=== PATIENT | male | born 1955 | race Caucasian/White ===

== ENCOUNTER 2017-09-27 11:38 | Inpatient (IN) | payer MEDICARE ==
[2017-09-27] VITALS (7 sets, daily range): BP systolic 148–187; BP diastolic 80–102; PULSE 66–78; RESP 16–20; TEMP 96.5–98.9; O2SAT 96–98
[~2017-09-27] VITALS: Ht 182.9 cm; Wt 119.3 kg
[2017-09-27] MEDS ORDERED: SPIR25TA PO (13:12)
[2017-09-27] MEDS ORDERED: ASPI1TAB57 PO (13:12)
[2017-09-27] MEDS ORDERED: LEVEMIR SQ (13:12)
[2017-09-27] MEDS ORDERED: ALLO300T2 PO (13:12)
[2017-09-27] MEDS ORDERED: GABA300C5 PO (13:12)
[2017-09-27] MEDS ORDERED: OXYC1CAP PO (13:12)
[2017-09-27] MEDS ORDERED: FLUO40CA PO (13:12)
[2017-09-27] MEDS ORDERED: RANI150T PO (13:12)
[2017-09-27] MEDS ORDERED: FENO145T2 PO (13:12)
[2017-09-27] MEDS ORDERED: ATEN100T PO (13:12)
[2017-09-27] MEDS ORDERED: LISI40TA PO (13:12)
[2017-09-27] MEDS ORDERED: SODIUM CHLOR 0.9% 1000 ML INJ 1,000 ML IV SCH (13:27)
--- NOTE | 2017-09-27 13:36 | PD ---
HPI Chief Complaint: Dizziness Time Seen by Provider: 13:23 Travel History International Travel<30 days: No Contact w/Intl Traveler<30days: No Traveled to known affect area: No History of Present Illness HPI This patient complained of having chest pain and abdominal pain. Duration one day. Severity is moderate. He had sternal pressure and pain as well as epigastric pain. 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 His gallbladder has been removed. He denies alcohol abuse. Symptoms have no alleviating factors. No exacerbating factors. 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) Social History Alcohol Use: No Tobacco Use: No Substance Use: No Allergies-Medications (Allergen,Severity, Reaction): Coded Allergies: hydrochlorothiazide (Verified Allergy, Severe, GOUT, 09/27/17) metformin (Verified Allergy, Severe, DIARRHEA, 09/27/17) metoprolol (Verified Allergy, Severe, GOUT, 09/27/17) Uncoded Allergies: PHENCYCHLODINE (Allergy, Severe, SNEEZE, 09/27/17) Reported Meds & Prescriptions Reported Meds & Active Scripts Active Reported Aspirin 81 (Aspirin) 81 Mg Tabdr 81 Mg PO DAILY Fluoxetine (Fluoxetine HCl) 40 Mg Cap 40 Cap PO DAILY Gabapentin 300 Mg Cap 300 Mg PO BID Ranitidine (Ranitidine HCl) 150 Mg Tab 150 Mg PO BID Atenolol 100 Mg Tab 100 Mg PO DAILY Spironolactone 25 Mg Tab 25 Mg PO DAILY Lisinopril 40 Mg Tab 40 Mg PO DAILY Fenofibrate 145 Mg Tab 145 Mg PO DAILY Oxycodone (Oxycodone HCl) 5 Mg Cap 5 Mg PO Q4H PRN Allopurinol 300 Mg Tab 300 Mg PO DAILY Levemir Inj (Insulin Detemir) 1,000 unit/ 10 ML Vial 27 Units SQ HS Do not mix with any other Insulin. Review of Systems General / Constitutional: No: Fever Eyes: No: Visual changes HENT: No: Headaches Cardiovascular: Positive: Chest Pain or Discomfort Respiratory: No: Shortness of Breath Gastrointestinal: Positive: Nausea, Vomiting, Abdominal Pain Genitourinary: No: Dysuria Musculoskeletal: No: Pain Skin: No Rash Neurologic: No: Weakness Psychiatric: No: Depression Endocrine: No: Polydipsia Hematologic/Lymphatic: No: Easy Bruising Physical Exam Narrative GENERAL: Well-nourished, well-developed patient in no apparent distress. SKIN: Focused skin assessment reveals no rash and nodules. Skin is Warm and dry. HEAD: Atraumatic. Normocephalic. EYES: Pupils equal and round. No scleral icterus. No injection or drainage. ENT: No nasal bleeding or discharge. Mucous membranes pink and moist. NECK: Trachea midline. No JVD. CARDIOVASCULAR: Regular rate and rhythm. No murmur appreciated. RESPIRATORY: No accessory muscle use. Clear to auscultation. Breath sounds equal bilaterally. GASTROINTESTINAL: Abdomen soft, mild epigastric tenderness without rebound or guarding, nondistended. Hepatic and splenic margins not palpable. MUSCULOSKELETAL: No obvious deformities. No clubbing. No cyanosis. No edema. NEUROLOGICAL: Awake and alert. No obvious cranial nerve deficits. Motor grossly within normal limits. Normal speech. PSYCHIATRIC: Appropriate mood and affect; insight and judgment normal. Data Data Last Documented VS Vital Signs Date Time Temp Pulse Resp B/P (MAP) Pulse Ox O2 Delivery O2 Flow Rate FiO2 09/27/17 15:00 75 16 148/89 (108) 97 Room Air 09/27/17 11:51 97.4 Orders Orders Complete Blood Count With Diff (09/27/17 13:27) Comprehensive Metabolic Panel (09/27/17 13:27) Lipase (09/27/17 13:27) Iv Access Insert/Monitor (09/27/17 13:27) Ecg Monitoring (09/27/17 13:27) Oximetry (09/27/17 13:27) NPO (09/27/17 13:27) Sodium Chlor 0.9% 1000 Ml Inj (Ns 1000 M (09/27/17 13:27) Sodium Chloride 0.9% Flush (Ns Flush) (09/27/17 13:30) Bedside Glucose RADHA.CSUGAR (09/27/17 13:27) Ckmb (Isoenzyme) Profile (09/27/17 13:27) Troponin I (09/27/17 13:27) Chest, Single Ap (09/27/17 ) Ondansetron Inj (Zofran Inj) (09/27/17 15:00) Sodium Chlor 0.9% 1000 Ml Inj (Ns 1000 M (09/27/17 15:00) Morphine Inj (Morphine Inj) (09/27/17 15:00) Insulin Human Regular Inj (Novolin R Inj (09/27/17 15:00) Resp Blood Gas Venous (09/27/17 ) Beta Hydroxybutyrate (Acetone) (09/27/17 15:00) Alcohol (Ethanol) (09/27/17 15:00) Blood Gas Venous (Vbg) (09/27/17 15:10) Electrocardiogram (09/27/17 11:51) Admit To Inpatient (09/27/17 ) Vital Signs (Adult) RADHA.Q4H (09/27/17 15:59) Activity Oob With Assistance (09/27/17 15:59) Inpatient Certification (09/27/17 ) Complete Blood Count With Diff (09/28/17 06:00) Basic Metabolic Panel (Bmp) (09/28/17 06:00) Labs Laboratory Tests Test 09/27/17 12:45 09/27/17 15:10 09/27/17 15:15 White Blood Count 12.9 TH/MM3 Red Blood Count 5.34 MIL/MM3 Hemoglobin 15.6 GM/DL Hematocrit 44.8 % Mean Corpuscular Volume 84.0 FL Mean Corpuscular Hemoglobin 29.1 PG Mean Corpuscular Hemoglobin Concent 34.7 % Red Cell Distribution Width 15.4 % Platelet Count 172 TH/MM3 Mean Platelet Volume 8.2 FL Neutrophils (%) (Auto) 88.9 % Lymphocytes (%) (Auto) 5.4 % Monocytes (%) (Auto) 5.3 % Eosinophils (%) (Auto) 0.2 % Basophils (%) (Auto) 0.2 % Neutrophils # (Auto) 11.5 TH/MM3 Lymphocytes # (Auto) 0.7 TH/MM3 Monocytes # (Auto) 0.7 TH/MM3 Eosinophils # (Auto) 0.0 TH/MM3 Basophils # (Auto) 0.0 TH/MM3 CBC Comment DIFF FINAL Differential Comment Blood Urea Nitrogen 36 MG/DL Creatinine 1.50 MG/DL Random Glucose 478 MG/DL Total Protein 7.7 GM/DL Albumin 3.5 GM/DL Calcium Level 9.3 MG/DL Alkaline Phosphatase 62 U/L Aspartate Amino Transf (AST/SGOT) 12 U/L Alanine Aminotransferase (ALT/SGPT) 19 U/L Total Bilirubin 0.6 MG/DL Sodium Level 130 MEQ/L Potassium Level 4.5 MEQ/L Chloride Level 95 MEQ/L Carbon Dioxide Level 17.8 MEQ/L Anion Gap 17 MEQ/L Estimat Glomerular Filtration Rate 47 ML/MIN Total Creatine Kinase 33 U/L Troponin I LESS THAN 0.02 NG/ML Lipase 3922 U/L Blood Gas Puncture Site L ARM Blood Gas Patient Temperature 98.6 Venous Blood pH 7.38 Venous Blood Partial Pressure CO2 31 mmHg Venous Blood Partial Pressure O2 46 mmHg Venous Blood HCO3 18 mmol/L Venous Blood Oxygen Saturation 78 % Venous Blood Oxygen Content 17.0 Vol % Venous Blood Base Excess -6.0 mmol/L Oxygen Delivery Device ROOM AIR Blood Gas Inspired Oxygen 21 % Ethyl Alcohol Level LESS THAN 3 MG/DL B-Hydroxybutyrate 2.50 MMOL/L MDM Medical Decision Making Medical Screen Exam Complete: Yes Emergency Medical Condition: Yes Medical Record Reviewed: Yes Differential Diagnosis Pancreatitis, ACS, angina, hepatitis Narrative Course I have reviewed the patient's electronic medical record. IV placed CBC is normal metabolic profile shows prominent hyperglycemia of 478. Bicarbonate is 18. LFT's are normal lipase is elevated at almost 4000 suggesting acute pancreatitis CK is normal Troponin is normal I reviewed his chest x-ray shows no consolidation or pneumothorax I reviewed his EKG which shows sinus rhythm and no ST elevation Extended cardiac monitoring reveals sinus rhythm without ectopy Patient has repeated episodes of vomiting. He has acute pancreatitis and out of control diabetes. He is not in DKA. He will require inpatient care. I reviewed with hospitalist will admit. I've given him 2 L normal saline IV bolus and IV regular insulin Diagnosis Primary Impression: Pancreatitis, acute Qualified Codes: K85.90 - Acute pancreatitis without necrosis or infection, unspecified Additional Impression: Hyperglycemia due to type 1 diabetes mellitus Admitting Information Admitting Physician Requests: Admit Stas Wilkerson MD Sep 27, 2017 13:36
--- NOTE | 2017-09-27 13:48 | RADRPT ---
EXAM DATE/TIME: 09/27/2017 13:36 [facility] COMPARISON: No previous studies available for comparison. INDICATIONS : Chest pain and vomiting MEDICAL HISTORY : Hypertension. Congestive heart failure. SURGICAL HISTORY : Cardiac catherization ENCOUNTER: Initial ACUITY: 1 day PAIN SCORE: 7/10 LOCATION: Bilateral chest FINDINGS: The lungs are clear. The heart is minimally enlarged. The pulmonary vascularity is normal. There is n o evidence for infiltrate or failure. The portion of the bony skeleton visualized is unremarkable. CONCLUSION: Compensated cardiomegaly otherwise negative Josh Corrigan MD FACR on September 27, 2017 at 13:45 Board Certified Radiologist. This report was verified electronically.
[2017-09-27 13:54] LABS: AUTOMATED NEUTROPHIL # 11.5 TH/MM3 (1.8-7.7); BASOPHIL % 0.2 % (0.0-2.0); EOSINOPHIL % 0.2 % (0.0-4.0); HEMATOCRIT 44.8 % (39.0-51.0); HEMOGLOBIN 15.6 GM/DL (13.0-17.0); LYMPH % 5.4 % (9.0-44.0); LYMPHOCYTE # 0.7 TH/MM3 (1.0-4.8); MEAN CORPUSCULAR HEMOGLOBIN 29.1 PG (27.0-34.0); MEAN CORPUSCULAR HGB CONC 34.7 % (32.0-36.0); MEAN PLATELET VOLUME 8.2 FL (7.0-11.0); MONO % 5.3 % (0.0-8.0); MONOCYTE # 0.7 TH/MM3 (0-0.9); NEUT % 88.9 % (16.0-70.0); PLATELET COUNT 172 TH/MM3 (150-450); RED BLOOD COUNT 5.34 MIL/MM3 (4.50-5.90); RED CELL DISTRIBUTION WIDTH 15.4 % (11.6-17.2); WHITE BLOOD COUNT 12.9 TH/MM3 (4.0-11.0)
[2017-09-27] MEDS: SODIUM CHLORIDE 0.9% FLUSH 10 ML FLUSH IV FLUSH PRN ×2 (13:55→15:23)
[2017-09-27 14:06] LABS: CHLORIDE 95 MEQ/L (98-107); SODIUM (NA) 130 MEQ/L (136-145)
[2017-09-27 14:10] LABS: CALCIUM 9.3 MG/DL (8.5-10.1)
[2017-09-27 14:11] LABS: ALBUMIN 3.5 GM/DL (3.4-5.0); BICARBONATE 17.8 MEQ/L (21.0-32.0)
[2017-09-27 14:24] LABS: ALKALINE PHOSPHATASE 62 U/L (45-117); ALT (GPT) 19 U/L (12-78); AST (GOT) 12 U/L (15-37); BLOOD UREA NITROGEN 36 MG/DL (7-18); GLOMERULAR FILTRATION RATE 47 ML/MIN (>89); LIPASE 3922 U/L (73-393); TOTAL BILIRUBIN ADULT 0.6 MG/DL (0.2-1.0); TOTAL PROTEIN 7.7 GM/DL (6.4-8.2); TROPONIN I LESS THAN 0.02 NG/ML (0.02-0.05)
[2017-09-27 14:31] LABS: GLUCOSE,RANDOM 478 MG/DL (74-106)
[2017-09-27] MEDS ORDERED: ONDANSETRON HCL 4 MG/2 ML VIAL IVP ONE (15:00)
[2017-09-27] MEDS ORDERED: MORPHINE SULFATE 4 MG/ML INJ IV PUSH ONE (15:00)
[2017-09-27] MEDS ORDERED: SODIUM CHLOR 0.9% 1000 ML INJ 1,000 ML IV ONE (15:00)
[2017-09-27] MEDS ORDERED: INSULIN HUMAN REGULAR 1,000 UNITS/10 ML VIAL IV PUSH ONE (15:00)
--- NOTE | 2017-09-27 17:57 | HHI.HP ---
[facility] Service [facility] Primary Care Physician No Primary Care Physician Admission Diagnosis pancreatitis, hyperglycemia Diagnoses: Chief Complaint: Abdominal pain, vomiting Travel History International Travel<30 Days: No Contact w/Intl Traveler <30 Da: No Traveled to Known Affected Are: No History of Present Illness 62-year-old white male being admitted for acute recurrent pancreatitis. Patient was in his usual state of health until about 3 AM this morning when he says he began experiencing right-sided abdominal pain that became severe over time. Says this was followed by vomiting a couple of times, had nonbloody emesis. He thought that the symptoms would resolve but they did not and thus he came to the emergency room. Denies any subjective fevers or chills. Denies any changes bowel habits, says he goes regularly daily. Patient says he has had pancreatitis in the past twice, the first time a couple years ago. He says he stopped drinking many years before that and denies smoking. Says he just had his gallbladder taken out last year. Patient says he took some of his home oxycodone for the abdominal pain started relieve the chest partially. Emergency room he got IV fluids, had a lipase that was elevated in the 3000s and was noted to be hyponatremic at 130 as well as having a glucose over 400. Review of Systems Except as stated in HPI: all other systems reviewed are Neg Past Family Social History Past Medical History Congestive heart failure, diabetes Past Surgical History Cholecystectomy, colonoscopy Allergies: Coded Allergies: hydrochlorothiazide (Verified Allergy, Severe, GOUT, 09/27/17) metformin (Verified Allergy, Severe, DIARRHEA, 09/27/17) metoprolol (Verified Allergy, Severe, GOUT, 09/27/17) Uncoded Allergies: PHENCYCHLODINE (Allergy, Severe, SNEEZE, 09/27/17) Family History Family history of diabetes, no family history of pancreatic cancer pancreatitis or colorectal cancer Social History Lives with his , are snowbirds that come down from [place]. Denies smoking. Says he used to drink up until his 40s or 50s. None since then. Physical Exam Vital Signs Vital Signs Date Time Temp Pulse Resp B/P (MAP) Pulse Ox O2 Delivery O2 Flow Rate FiO2 09/27/17 17:05 81 16 158/80 (106) 97 09/27/17 17:02 16 09/27/17 16:00 78 16 148/89 (108) 97 Room Air 09/27/17 15:00 75 16 148/89 (108) 97 Room Air 09/27/17 15:00 78 16 Room Air 09/27/17 14:00 75 16 187/86 (119) 98 Room Air 09/27/17 13:55 16 98 Room Air 09/27/17 12:50 Room Air 09/27/17 11:51 97.4 69 20 185/102 (129) 98 Physical Exam VS: afebrile GENERAL: Middle-aged white male, obese, lying in bed, no acute distress SKIN: Warm and dry. EYES: No scleral icterus. No injection or drainage. ENT: No nasal bleeding or discharge. poor dentition. CARDIOVASCULAR: Regular rate and rhythm. no murmurs RESPIRATORY: No accessory muscle use. Clear to auscultation. GASTROINTESTINAL: Abdomen soft, obese abdomen, moderately tender to palpation in the epigastrium. Extremities: No clubbing, cyanosis, or edema. No obvious deformities. MUSCULOSKELETAL: grossly intact ROM with 5/5 strength in upper and lower extremities proximally; adequate muscle bulk and tone for age and habitus NEUROLOGICAL: Awake and alert. No obvious cranial nerve deficits. No facial droop nor slurred speech noted. PSYCHIATRIC: Appropriate mood and affect; insight and judgment normal. Laboratory Laboratory Tests Test 09/27/17 12:45 09/27/17 15:10 09/27/17 15:15 White Blood Count 12.9 Red Blood Count 5.34 Hemoglobin 15.6 Hematocrit 44.8 Mean Corpuscular Volume 84.0 Mean Corpuscular Hemoglobin 29.1 Mean Corpuscular Hemoglobin Concent 34.7 Red Cell Distribution Width 15.4 Platelet Count 172 Mean Platelet Volume 8.2 Neutrophils (%) (Auto) 88.9 Lymphocytes (%) (Auto) 5.4 Monocytes (%) (Auto) 5.3 Eosinophils (%) (Auto) 0.2 Basophils (%) (Auto) 0.2 Neutrophils # (Auto) 11.5 Lymphocytes # (Auto) 0.7 Monocytes # (Auto) 0.7 Eosinophils # (Auto) 0.0 Basophils # (Auto) 0.0 CBC Comment DIFF FINAL Differential Comment Blood Urea Nitrogen 36 Creatinine 1.50 Random Glucose 478 Total Protein 7.7 Albumin 3.5 Calcium Level 9.3 Alkaline Phosphatase 62 Aspartate Amino Transf (AST/SGOT) 12 Alanine Aminotransferase (ALT/SGPT) 19 Total Bilirubin 0.6 Sodium Level 130 Potassium Level 4.5 Chloride Level 95 Carbon Dioxide Level 17.8 Anion Gap 17 Estimat Glomerular Filtration Rate 47 Total Creatine Kinase 33 Troponin I LESS THAN 0.02 Lipase 3922 Blood Gas Puncture Site L ARM Blood Gas Patient Temperature 98.6 Venous Blood pH 7.38 Venous Blood Partial Pressure CO2 31 Venous Blood Partial Pressure O2 46 Venous Blood HCO3 18 Venous Blood Oxygen Saturation 78 Venous Blood Oxygen Content 17.0 Venous Blood Base Excess -6.0 Oxygen Delivery Device ROOM AIR Blood Gas Inspired Oxygen 21 Ethyl Alcohol Level LESS THAN 3 B-Hydroxybutyrate 2.50 Result Diagram: 09/27/17 1245 09/27/17 1245 Caprini VTE Risk Assessment Caprini VTE Risk Assessment: Mod/High Risk (score >= 2) Caprini Risk Assessment Model Point Value = 1 Point Value = 2 Point Value = 3 Point Value = 5 Age 41-60 Minor surgery BMI > 25 kg/m2 Swollen legs Varicose veins or History of unexplained or recurrent spontaneous Oral contraceptives or hormone replacement Sepsis (< 1 month) Serious lung disease, including pneumonia (< 1 month) Abnormal pulmonary function Acute myocardial infarction Congestive heart failure (< 1 month) History of inflammatory bowel disease Medical patient at bed rest Age 61-74 Arthroscopic surgery Major open surgery (> 45 min) Laparoscopic surgery (> 45 min) Malignancy Confined to bed (> 72 hours) Immobilizing plaster cast Central venous access Age >= 75 History of VTE Family history of VTE Factor V Leiden Prothrombin [id number] Lupus anticoagulant Anticardiolipin antibodies Elevated serum homocysteine Heparin-induced thrombocytopenia Other congenital or acquired thrombophilia Stroke (< 1 month) Elective arthroplasty Hip, pelvis, or leg fracture Acute spinal cord injury (< 1 month) Prophylaxis Regimen Total Risk Factor Score Risk Level Prophylaxis Regimen 0-1 Low Early ambulation 2 Moderate Order ONE of the following: *Sequential Compression Device (SCD) *Heparin 5000 units SQ BID 3-4 Higher Order ONE of the following medications: *Heparin 5000 units SQ TID *Enoxaparin/Lovenox 40 mg SQ daily (WT < 150 kg, CrCl > 30 mL/min) *Enoxaparin/Lovenox 30 mg SQ daily (WT < 150 kg, CrCl > 10-29 mL/min) *Enoxaparin/Lovenox 30 mg SQ BID (WT < 150 kg, CrCl > 30 mL/min) AND/OR *Sequential Compression Device (SCD) 5 or more Highest Order ONE of the following medications: *Heparin 5000 units SQ TID (Preferred with Epidurals) *Enoxaparin/Lovenox 40 mg SQ daily (WT < 150 kg, CrCl > 30 mL/min) *Enoxaparin/Lovenox 30 mg SQ daily (WT < 150 kg, CrCl > 10-29 mL/min) *Enoxaparin/Lovenox 30 mg SQ BID (WT < 150 kg, CrCl > 30 mL/min) AND *Sequential Compression Device (SCD) Assessment and Plan Assessment and Plan 62-year-old white male being admitted for acute recurrent pancreatitis Acute recurrent pancreatitis - Etiology is not clear since patient is status post cholecystectomy and is not a drinker nor is he a smoker; will obtain igg-4 serum levels to pursue autoimmune workup for now. - will hydrate with IV fluids, iv morphine for breakthru, otherwise continue home oxycodone, npo tonight, clear liquids in AM as tolerated Mild ARIANNA - IV fluids as above, likely secondary to dehydration from vomiting Congestive heart failure - Cautious hydration, will start IV Lasix to counter act fluid overload along with potassium supplementation, strict intake and output - resume home meds of lisinopril and spironolactone and bblocker Diabetes - Given that the patient takes 27 units of long-acting insulin at home, I will start him on a medium dose sliding scale with Accu-Cheks Chronic back pain - Resume home pain medications Lovenox Physician Certification 2 Midnight Certification Type: Admission for Inpatient Services Order for Inpatient Services The services are ordered in accordance with Medicare regulations or non- Medicare payer requirements, as applicable. In the case of services not specified as inpatient-only, they are appropriately provided as inpatient services in accordance with the 2-midnight benchmark. Estimated LOS (days): 2 2 days is the estimated time the patient will need to remain in the hospital, assuming treatment plan goals are met and no additional complications. Post-Hospital Plan: Home Dev Gonzalez MD Sep 27, 2017 17:57
[2017-09-27] MEDS ORDERED: DEXTROSE 50% IN WATER 50 ML VIAL(D50) IV PUSH PRN (18:00)
[2017-09-27] MEDS ORDERED: GLUCAGON 1 MG/ML VIAL OTHER PRN (18:00)
[2017-09-27] MEDS: ATENOLOL 50 MG TAB PO SCH (18:13)
[2017-09-27] MEDS: FUROSEMIDE 40 MG/4 ML VIAL IV PUSH SCH (18:13)
[2017-09-27] MEDS: SODIUM CHLOR 0.9% 1000 ML INJ 1,000 ML IV SCH (18:14)
[2017-09-27] MEDS: SPIRONOLACTONE 25 MG TAB PO SCH (19:26)
[2017-09-27] MEDS: LISINOPRIL 20 MG TAB PO SCH (19:26)
[2017-09-27] MEDS: GABAPENTIN 300 MG CAP PO SCH (21:15)
[2017-09-27] MEDS: FAMOTIDINE 20 MG TAB PO SCH (21:15)
[2017-09-27] MEDS: INSULIN NovoLIN REGULAR SUPPLEMENTAL SCALE SQ SCH (22:10)
[2017-09-28] MEDS: MORPHINE SULFATE 2 MG/ML INJ IV PUSH PRN ×3 (00:18→18:41)
[2017-09-28 00:26] VITALS: BP 171/92; PULSE 61; RESP 16; TEMP 98; O2SAT 97
[2017-09-28] MEDS: SODIUM CHLOR 0.9% 1000 ML INJ 1,000 ML IV SCH ×3 (02:36→17:28)
[2017-09-28] MEDS ORDERED: INSULIN HUMAN REGULAR 1,000 UNITS/10 ML VIAL IV PUSH ONE ×2 (03:00→05:15)
[2017-09-28 05:00] VITALS: BP 158/87
[2017-09-28 06:55] LABS: AUTOMATED NEUTROPHIL # 12.4 TH/MM3 (1.8-7.7); BASOPHIL # 0.1 TH/MM3 (0-0.2); BASOPHIL % 0.5 % (0.0-2.0); EOSINOPHIL % 0.2 % (0.0-4.0); HEMATOCRIT 41.3 % (39.0-51.0); HEMOGLOBIN 13.9 GM/DL (13.0-17.0); LYMPHOCYTE # 1.2 TH/MM3 (1.0-4.8); MEAN CELL VOLUME 82.1 FL (80.0-100.0); MEAN CORPUSCULAR HEMOGLOBIN 27.5 PG (27.0-34.0); MEAN CORPUSCULAR HGB CONC 33.5 % (32.0-36.0); MEAN PLATELET VOLUME 8.1 FL (7.0-11.0); MONO % 10.2 % (0.0-8.0); MONOCYTE # 1.5 TH/MM3 (0-0.9); NEUT % 81.1 % (16.0-70.0); PLATELET COUNT 153 TH/MM3 (150-450); RED BLOOD COUNT 5.04 MIL/MM3 (4.50-5.90); RED CELL DISTRIBUTION WIDTH 14.7 % (11.6-17.2); WHITE BLOOD COUNT 15.2 TH/MM3 (4.0-11.0)
[2017-09-28 07:31] LABS: CREATININE 1.3 MG/DL (0.60-1.30)
[2017-09-28 07:32] LABS: CALCIUM 8.4 MG/DL (8.5-10.1)
[2017-09-28] MEDS: FUROSEMIDE 40 MG/4 ML VIAL IV PUSH SCH ×2 (07:59→17:27)
[2017-09-28 08:00] VITALS: BP 136/81; PULSE 62; RESP 18; TEMP 96.7; O2SAT 96
[2017-09-28] MEDS: INSULIN NovoLIN REGULAR SUPPLEMENTAL SCALE SQ SCH ×3 (08:00→17:00)
[2017-09-28] MEDS: GABAPENTIN 300 MG CAP PO SCH (08:01)
[2017-09-28] MEDS: SPIRONOLACTONE 25 MG TAB PO SCH (08:01)
[2017-09-28] MEDS: LISINOPRIL 20 MG TAB PO SCH (08:02)
[2017-09-28] MEDS: FAMOTIDINE 20 MG TAB PO SCH (08:02)
[2017-09-28] MEDS: ATENOLOL 50 MG TAB PO SCH (08:02)
[2017-09-28] MEDS ORDERED: FLUoxetine HCL 20 MG CAP PO SCH (09:00)
[2017-09-28] MEDS ORDERED: POTASSIUM CHLORIDE 10 MEQ CONTROLLED RELEASE TAB PO SCH (09:00)
[2017-09-28 12:00] VITALS: BP 106/69; PULSE 63; RESP 18; TEMP 98.3; O2SAT 96
--- NOTE | 2017-09-28 14:12 | EKG ---
Date Performed: 09/27/2017 Time Performed: 11:51:29 PTAGE: 62 years EKG: Sinus rhythm Right bundle branch block POSSIBLE LATERAL MYOCARDIAL INFARCTION ABNORMAL ECG NO PREVIOUS TRACING DOCTOR: Henry Cat Interpretating Date/Time 09/28/2017 14:11:12
[2017-09-28 16:00] VITALS: BP 148/84; PULSE 63; RESP 18; TEMP 97.8; O2SAT 96
[2017-09-28] MEDS ORDERED: FURO1TAB60 PO (17:54)
[2017-09-28] MEDS ORDERED: OXYC1CAP PO (17:54)
[2017-09-28] MEDS ORDERED: PROM12.54 PO (17:54)
--- NOTE | 2017-09-28 17:55 | HHI.DCPOC ---
Discharge Care Plan Diagnosis: (1) Acute recurrent pancreatitis Goals to Promote Your Health * To prevent worsening of your condition and complications * To maintain your health at the optimal level Directions to Meet Your Goals Take your medications as prescribed Follow your dietary instruction Follow activity as directed Keep your appointments as scheduled Take your immunizations and boosters as scheduled If your symptoms worsen call your PCP, if no PCP go to Urgent Care Center or Emergency Room Smoking is Dangerous to Your Health. Avoid second hand smoke Call the 24-hour hour crisis hotline for domestic abuse at Dev Gonzalez MD Sep 28, 2017 17:55
== END 2017-09-28 20:34 | disposition home or self-care (01) | DRG 439 ==
LOC: PHED 11:38 → PHEDA 16:09 → PH3B 17:20
PROVIDERS: ADMIT Hospitalist; ATTEND Hospitalist
DX: K85.90 Acute pancreatitis without necrosis or infection, unspecified (principal); E87.1 Hypo-osmolality and hyponatremia; N17.9 Acute kidney failure, unspecified; I11.0 Hypertensive heart disease with heart failure; I50.9 Heart failure, unspecified; K86.1 Other chronic pancreatitis; E11.65 Type 2 diabetes mellitus with hyperglycemia; M10.9 Gout, unspecified; E86.0 Dehydration; G89.29 Other chronic pain; M54.9 Dorsalgia, unspecified; Z79.4 Long term (current) use of insulin
CPT/HCPCS: 71045; 80048; 80053; 80307; 82010; 82550; 82784; 82787; 82805; 82948; 83690; 84484; 85025; 93005; 96361; 96374; 96375; J1815; J1940; J2270; J2405; J7030